=== PATIENT | female | born 1975 | race Caucasian/White ===

== ENCOUNTER 2017-04-25 09:37 | Outpatient (CLI) | payer OTHER ==
--- NOTE | 2017-04-25 12:58 | MRI ---
MRI LUMBAR SPINE WITHOUT IV CONTRAST: INDICATIONS: A 42-year-old female with chronic low back pain with right leg radiculopathy, on and off for nine yea rs, recently worsened over the last nine weeks. FINDINGS: There are five lumbar type vertebrae assumed for the purposes of this exam due to the lack of radiogr aphic comparisons. The conus seems to terminate proximally at T12-L1. Bone marrow signal intensity appears within normal limits. There is loss of normal disk signal and height at L3-L4 through L5-S1. At L5-S1, there is a central to right paracentral disk protrusion with a superimposed, cephalad exten ding disk extrusion, measuring 2 x 1.9 cm in its greatest mediolateral and craniocaudad dimensions. The protrusion and extrusion is causing prominent narrowing of the right lateral recess with probable impingement of the traversing right S1 nerve root. There is also moderate effacement of the right v entral lateral and ventral aspect of the subarachnoid space, at L5-S1. This is best seen on image 12 of series 2 and image 47 of series 6. Broad-based bulge and facet hypertrophy are also present at t his level. At L4-L5, there is a broad-based bulge with a superimposed central annular fissure, measuring 5 mm. At L3-L4, there is no appreciable central canal or neural foraminal narrowing. At L2-L3, there is no appreciable central canal or neural foraminal narrowing. At L1-L2, there is no appreciable central canal or neural foraminal narrowing. IMPRESSION: 1. Large right central to paracentral disk extrusion causing severe narrowing of the right lateral r ecess and probable impingement of the traversing right S1 nerve root. 2. Central annular fissure and broad-based bulge at L4-L5. POS: POONAM
== END 2017-04-25 09:38 | disposition home or self-care (01) ==
LOC: SCSMRI 09:37
PROVIDERS: ATTEND Anesthesiology Pain Medicine
DX: M51.16 Intervertebral disc disorders with radiculopathy, lumbar region (principal); M53.3 Sacrococcygeal disorders, not elsewhere classified
CPT/HCPCS: 72148

== ENCOUNTER 2017-05-19 10:56 | Day surgery (SDC) | payer OTHER ==
[2017-05-18 09:37] VITALS: BMI 25.8
[~2017-05-19 10:56] MED LIST: Dexamethasone 20 MG/5 ML VIAL ONE; Glycopyrrolate 0.2 MG/ML 5 ML SYRINGE ONE; Ketorolac Tromethamine 30 MG/ML VIAL ONE; Lidocaine 1% PF 5 ML VIAL ONE; Metoclopramide HCl 10 MG/2 ML VIAL ONE; Ondansetron HCl/PF 4 MG/2 ML Vial ONE; PROPOFOL 200 MG/20 ML VIAL ONE
[2017-05-19] MEDS ORDERED: CEFAZOLIN/Water 2 GM/20 ML SYRINGE ONE (11:28)
[2017-05-19 11:45] LABS: #Eosinphils 0.1 thou/uL (0.0-0.7); #Lymphocytes 1.5 thou/uL (1.20-3.40); #Monocytes 0.3 thou/uL (0.11-0.59); #Neutrophils 4.8 thou/uL (1.40-6.50); %Basophils 0.4 % (0.0-1.0); %Eosinophils 0.9 % (0.0-10.0); %Lymphocytes 22.7 % (21.0-51.0); Hemoglobin 15.6 g/dL (12.0-16.0); Mean Corpuscular HGB CONC 34.8 g/dL (32.0-36.0); Mean Corpuscular Hemoglobin 31.1 pg (27.0-31.0); Mean Corpuscular Volume 89.4 fl (81.0-99.0); Mean Platelet Volume 6.9 fL (7.4-10.4); Platelet Count 204 thou/uL (130-400); RBC Distribution Width 10.6 % (11.5-14.5); Red Blood Cell (RBC) Count 5.02 mill/uL (4.20-5.40); White Blood Cell (WBC) Count 6.7 thou/uL (4.8-10.8)
[2017-05-19 11:50] LABS: PTT 25.4 SEC (22.9-36.1); Prothrombin Time 12.9 SEC (12.0-14.7)
[2017-05-19 11:53] LABS: BHCG - Serum Negative (NEGATIVE); Pregs Control Background? CLEAR/WHITE (CLR/WHITE); Pregs Control Bar Appear? YES (CONTROL BAR)
[2017-05-19] MEDS ORDERED: Fentanyl 100 MCG/2 ML VIAL ONE ×3 (12:01→14:59)
[2017-05-19] MEDS ORDERED: Sodium Chloride 0.9% 10 ML ONE (12:02)
[2017-05-19] MEDS ORDERED: Bacitracin Zinc Ointment 30 gm TUBE ONE (12:03)
[2017-05-19] MEDS ORDERED: Thrombin 5000 UNITS/5 ML VIAL ONE (12:03)
[2017-05-19 12:06] LABS: Anion Gap 12 mmol/L (10-20); BUN (Urea Nitrogen) 12 mg/dL (7.0-18.7); Calc. Creatinine Clearance 112 mL/min (70-130); Calcium 9.3 mg/dL (7.8-10.44); Carbon Dioxide 26 mmol/L (22-29); Chloride 102 mmol/L (98-107); Estimated GFR-MDRD 76; Glucose 75 mg/dL (70-105); Potassium 4.1 mmol/L (3.5-5.1); Sodium 136 mmol/L (136-145)
[2017-05-19] MEDS ORDERED: Midazolam HCl 2 mg/2 ml Vial ONE (12:25)
[2017-05-19] MEDS ORDERED: HYDROmorphone 0.5 MG/0.5 ML SYRINGE ONE (14:32)
[2017-05-19] MEDS ORDERED: Promethazine HCl 25 MG/ML VIAL IM PRN ×2 (14:51→15:51)
[2017-05-19] MEDS ORDERED: Ondansetron HCl/PF 4 MG/2 ML Vial IVP PRN ×2 (14:51→15:51)
[2017-05-19] MEDS ORDERED: Acetaminophen/Codeine 30-300mg Tablet PO PRN (14:51)
[2017-05-19] MEDS ORDERED: traMADol HCl 50 MG TAB PO PRN (14:51)
[2017-05-19] MEDS ORDERED: Fleet Enema 133 ML BOT PR PRN (14:51)
[2017-05-19] MEDS ORDERED: Bisacodyl 10 MG SUPP PR PRN (14:51)
[2017-05-19] MEDS ORDERED: Mag-Al 1200 mg/1200 mg/30 ML UDCUP PO PRN (14:51)
[2017-05-19] MEDS ORDERED: Milk Of Magnesia 30 ML UDCUP PO PRN (14:51)
[2017-05-19] MEDS ORDERED: Acetaminophen 325 MG TAB PO PRN (14:51)
[2017-05-19] MEDS ORDERED: Promethazine HCl 25 MG/ML VIAL SLOW IVP PRN (15:51)
[2017-05-19] MEDS: Cyclobenzaprine 10 MG TAB PO SCH ×3 (16:20→20:21)
[2017-05-19] MEDS: Sodium Chloride 0.9% 1,000 ML IV SCH (16:31)
[2017-05-19] MEDS: CEFAZOLIN/Water 2 GM/20 ML SYRINGE SLOW IVP SCH (20:21)
[2017-05-19] MEDS: HYDROcodone/Acetaminophen 7.5/325 mg Tablet PO PRN (20:22)
[2017-05-20] MEDS: HYDROcodone/Acetaminophen 7.5/325 mg Tablet PO PRN ×2 (01:09→08:46)
[2017-05-20] MEDS: CEFAZOLIN/Water 2 GM/20 ML SYRINGE SLOW IVP SCH (04:57)
[2017-05-20] MEDS: Sodium Chloride 0.9% 1,000 ML IV SCH (04:57)
[2017-05-20] MEDS ORDERED: Levothyroxine 150 MCG TAB PO SCH (06:00)
[2017-05-20] MEDS: Cyclobenzaprine 10 MG TAB PO SCH (08:46)
[2017-05-20 08:48] VITALS: BP 143/81; TEMP 98.5
[2017-05-20] MEDS ORDERED: NORGEST PO SCH (09:00)
[2017-05-20] MEDS ORDERED: E ESTRADIOL E ESTRAD PO SCH (09:00)
[2017-05-20] MEDS ORDERED: PARoxetine CR 12.5 MG TAB PO SCH (09:00)
[2017-05-20] MEDS ORDERED: FLU VACC QS2017-18 36 mo. & older 0.5 ML SYRINGE IM ONE (09:00)
[2017-05-20] MEDS ORDERED: Gabapentin 300 MG CAP PO SCH (09:00)
--- NOTE | 2017-05-20 09:16 | PRG ---
DATE OF SERVICE: 05/20/2017 Ms. Curiel is doing well postoperative day 1 from an L5-S1 laminectomy, diskectomy, her leg pain has resolved. She is mobilizing. She has good strength in her lower extremity myotomes. We went o may intraoperative and postoperative issues. She may be dismissed.
--- NOTE | 2017-05-20 12:03 | OP ---
DATE OF SURGERY: 05/19/2017 OR: 12 WOUND TYPE: Type 1 wound. SURGEON: Bandar Can M.D. AMUSEMENT MACHINE MECHANIC: Juan F Scott PA-C. PREPROCEDURE DIAGNOSES: Large L5-S1 disk extrusion with low back and right greater than left leg marcela n. POSTPROCEDURE DIAGNOSES: Large L5-S1 disk extrusion with low back and right greater than left leg pa in. PROCEDURES: 1. L5-S1 laminectomy and diskectomy with both right and left side approach. 2. Use of operative microscope for microdissection. DESCRIPTION OF PROCEDURE: After informed consent was obtained from the patient, the patient brought to OR 12. Proper patient pause and identification was carried out. She was placed under excellent g eneral endotracheal anesthesia and positioned prone on the operating room table. All appropriate poi nts were padded. We identified the midline L5-S1 segment. Choco was drawn on the skin in this region , this area was sterilely cleansed, prepared, and draped. Proper patient pause and identification wa s carried out. The wound was then opened with a combination of sharp, monopolar and blunt dissection , and the L5-S1 dorsal spines and lamina were exposed. Localization film confirmed our area of inter est. We then performed an L5-S1 laminectomy and use of operative microscope was then performed for m icrodissection, proceeding over the shoulder of the traversing S1 nerve root, we identified extruded disk material. This was removed and we achieved excellent decompression of the S1 nerve root. I ass ured freedom of the right L5 nerve root and I then turned our attention to the left S1 nerve root and this was gently retracted as well. We identified disk material there, although not nearly as much a s expected or not nearly as much as the right side which had a large superior extruded fragment. The wound was copiously irrigated. Hemostasis was maximized throughout. There was no CSF leak. The wo und was then closed in anatomic layers following the sprinkling of vancomycin powder. The patient th en emerged from anesthesia.
--- NOTE | 2017-05-22 09:03 | DIS ---
DATE OF ADMISSION: 05/19/2017 DATE OF DISCHARGE: 05/20/2017 DISCHARGE DIAGNOSES: 1. Low back pain with right greater than left leg pain. 2. L5-S1 herniated disk. HOSPITAL COURSE: Ms. Curiel was admitted on 05/19/2017 to undergo an L5-S1 laminectomy and disk ectomy for a very large L5-S1 disk extrusion. The patient's surgery was without complication and she recovered well overnight in the surgical unit. On the morning of 05/30/2017, the patient's pain was under good control with oral medications, she was voiding spontaneously, walking, and tolerating a r egular diet. She was pleased with her outcome postoperatively and had almost complete resolution of her bilateral lower extremity pain at the time of discharge. Appropriate patient medication and outp atient followups were provided. Patient understands to call Neurosurgery with any questions or marifer rns prior to her next followup appointment.
== END 2017-05-20 10:55 | disposition home or self-care (01) ==
LOC: SDC 10:56 → SURG A 15:59 → UNDOADMOB 15:59 → SURG A 15:59 → UNDODISOB 05-20 10:55 → SDC 05-20 10:55
PROVIDERS: ATTEND Surgery
PROC: 01NB0ZZ Release Lumbar Nerve, Open Approach (ICD-10-PCS; principal; 2017-05-19)
PROC: 0SB20ZZ Excision of Lumbar Vertebral Disc, Open Approach (ICD-10-PCS; principal; 2017-05-19)
DX: M51.17 Intervertebral disc disorders with radiculopathy, lumbosacral region (principal); I10 Essential (primary) hypertension; E03.9 Hypothyroidism, unspecified; G43.909 Migraine, unspecified, not intractable, without status migrainosus; F41.9 Anxiety disorder, unspecified; F32.9 Major depressive disorder, single episode, unspecified; Z79.3 Long term (current) use of hormonal contraceptives; Z79.891 Long term (current) use of opiate analgesic; Z79.899 Other long term (current) drug therapy; Z88.1 Allergy status to other antibiotic agents; Z98.890 Other specified postprocedural states; Z87.442 Personal history of urinary calculi
CPT/HCPCS: 36415; 76001; 80048; 84703; 85025; 85610; 85730; 90471; 90682; 96374; A4216; G0008; J0131; J1100; J1170; J1885; J2001; J2250; J2270; J2405; J2704; J2765; J3010; J3370; J3490; Q2036

== ENCOUNTER 2021-04-26 08:23 | Outpatient (CLI) | payer BC ==
[2021-04-26 11:48] LABS: INR-International Normal Ratio 0.9; PTT 25.4 sec (22.0-33.0); Prothrombin Time 10.4 sec (9.5-12.1)
[2021-04-26 11:56] LABS: Mean Corpuscular HGB CONC 34.5 g/dL (32.0-36.0); Mean Corpuscular Hemoglobin 30.4 pg (27.0-33.0); Mean Corpuscular Volume 88.1 fl (81.6-98.3); Platelet Count 228 10x3/uL (150-450); RBC Distribution Width 12.9 % (11.5-14.5); Red Blood Cell (RBC) Count 4.94 10x6/uL (3.90-5.03); White Blood Cell (WBC) Count 6.5 10x3/uL (3.5-10.5)
[2021-04-26 12:07] LABS: Anion Gap 13 mmol/L (10-20); BUN (Urea Nitrogen) 14 mg/dL (7.0-18.7); Calc. Creatinine Clearance 0 mL/min (70-130); Calcium 9.1 mg/dL (7.8-10.44); Carbon Dioxide 29 mmol/L (22-29); Chloride 102 mmol/L (98-107); Glucose 78 mg/dL (70-105); Sodium 140 mmol/L (136-145)
[2021-04-26 17:37] LABS: SARS-CoV-2 PCR by NAA Not Detected (NotDetected)
== END 2021-04-26 08:24 | disposition home or self-care (01) ==
LOC: LABBT 08:23
PROVIDERS: ATTEND Surgery
DX: Z01.818 Encounter for other preprocedural examination (principal); M51.16 Intervertebral disc disorders with radiculopathy, lumbar region; Z20.822 Contact with and (suspected) exposure to COVID-19
CPT/HCPCS: 80048; 85027; 85610; 85730; 93005; 93010; U0003; U0005

== ENCOUNTER 2021-04-29 09:37 | Observation (INO) | payer BC ==
[2021-04-28 08:59] VITALS: BMI 27.9
[2021-04-29] MEDS ORDERED: ceFAZolin 2 GM/DEX 5% 100 ML BAG ONE (10:08)
[2021-04-29] MEDS ORDERED: EPINEPHrine 1 MG/ML AMP ONE (11:09)
[2021-04-29] MEDS ORDERED: Bacitracin Zinc Ointment 30 gm TUBE ONE (11:09)
[2021-04-29] MEDS ORDERED: Bupivacaine PF 0.5% 30 ML VIAL ONE (11:09)
[2021-04-29] MEDS ORDERED: Thrombin 5000 UNITS/5 ML VIAL ONE ×2 (11:09→12:39)
[2021-04-29] MEDS ORDERED: Midazolam HCl 2 mg/2 ml Vial ONE (11:13)
[2021-04-29] MEDS ORDERED: Fentanyl 100 MCG/2 ML VIAL ONE ×2 (11:17→13:46)
[2021-04-29] MEDS ORDERED: Sodium Chloride 0.9% 10 ML ONE (11:18)
[2021-04-29] MEDS ORDERED: HYDROmorphone 2 MG/ML VIAL ONE (11:18)
[2021-04-29] MEDS ORDERED: PROPOFOL 200 MG/20 ML VIAL ONE (11:38)
[2021-04-29] MEDS ORDERED: Glycopyrrolate 0.2 MG/ML 5 ML SYRINGE ONE (11:38)
[2021-04-29] MEDS ORDERED: Ondansetron PF 4 MG/2 ML Vial ONE (11:38)
[2021-04-29] MEDS ORDERED: Rocuronium Bromide 10 MG/ML (10ML VIAL) ONE (11:38)
[2021-04-29] MEDS ORDERED: Lidocaine 1% PF 5 ML VIAL ONE (11:38)
[2021-04-29] MEDS ORDERED: Dexamethasone 20 MG/5 ML VIAL ONE (11:38)
[2021-04-29] MEDS ORDERED: ePHEDrine 50 MG/ML VIAL ONE (11:38)
[2021-04-29] MEDS ORDERED: traMADol HCl 50 MG TAB PO PRN (13:10)
[2021-04-29] MEDS ORDERED: Acetaminophen/Codeine 30-300mg Tablet PO PRN (13:10)
[2021-04-29] MEDS ORDERED: Acetaminophen 325 MG TAB PO PRN (13:10)
[2021-04-29] MEDS ORDERED: Cyclobenzaprine 10 MG TAB PO PRN (13:14)
[2021-04-29] MEDS ORDERED: Morphine 4 MG/ML VIAL SLOW IVP PRN (13:27)
[2021-04-29] MEDS ORDERED: PACU-Morphine 4MG/ML VIAL SLOW IVP PRN (13:43)
[2021-04-29] MEDS ORDERED: HYDROmorphone 2 MG/ML VIAL SLOW IVP PRN (13:43)
[2021-04-29] MEDS ORDERED: Ondansetron HCl/PF 4 MG/2 ML Vial IVP PRN (13:43)
[2021-04-29] MEDS ORDERED: Promethazine HCl 25 MG/ML VIAL IM PRN (13:43)
[2021-04-29] MEDS ORDERED: Promethazine HCl 25 MG/ML VIAL IVPB PRN (13:43)
[2021-04-29] MEDS: Sodium Chloride 0.9% 1,000 ML IV SCH (15:49)
[2021-04-29] MEDS: ceFAZolin Sodium/D5W 2 GM in Premix Bag 1 BAG IVPB SCH (17:29)
[2021-04-29] MEDS: HYDROcodone/Acetaminophen 7.5/325 mg Tablet PO PRN (18:20)
[2021-04-29] MEDS ORDERED: PARoxetine CR 25 MG TAB PO SCH (21:00)
[2021-04-29] MEDS ORDERED: PARoxetine CR 12.5 MG TAB PO SCH (21:00)
[2021-04-29] MEDS ORDERED: Pregabalin 75 MG CAP PO SCH (21:00)
[2021-04-29] MEDS ORDERED: Atorvastatin Calcium 40 MG TAB PO SCH (21:00)
[2021-04-30] MEDS: HYDROcodone/Acetaminophen 7.5/325 mg Tablet PO PRN ×2 (01:11→07:56)
[2021-04-30] MEDS: ceFAZolin Sodium/D5W 2 GM in Premix Bag 1 BAG IVPB SCH (01:12)
[2021-04-30] MEDS: Sodium Chloride 0.9% 1,000 ML IV SCH (04:06)
[2021-04-30] MEDS ORDERED: Levothyroxine 150 MCG TAB PO SCH (06:00)
[2021-04-30 08:33] VITALS: BP 137/84; TEMP 97.8
[2021-04-30] MEDS ORDERED: Pregabalin 75 MG CAP PO SCH (09:00)
== END 2021-04-30 09:40 | disposition home or self-care (01) ==
LOC: SDC 09:37 → T4-A 13:15
PROVIDERS: ADMIT Surgery; ATTEND Surgery
PROC: 0SB20ZZ Excision of Lumbar Vertebral Disc, Open Approach (ICD-10-PCS; principal; 2021-04-29)
DX: M51.17 Intervertebral disc disorders with radiculopathy, lumbosacral region (principal); Z79.899 Other long term (current) drug therapy; Z88.1 Allergy status to other antibiotic agents; Z97.5 Presence of (intrauterine) contraceptive device
CPT/HCPCS: 36416; 76000; 96374; G0378; J0171; J1100; J1170; J2250; J2405; J2704; J3010; J3370; J3490; J7050; S0020